=== PATIENT | female | born 2000 | race Caucasian/White ===

== ENCOUNTER 2018-09-18 18:06 | Emergency (ER) | payer OTHER ==
[~2018-09-18] VITALS: Ht 167.6 cm; Wt 84.4 kg
[2018-09-18] MEDS ORDERED: NAPROSYN500 MG PO (19:43)
[2018-09-18 20:06] VITALS: BP 115/68
== END 2018-09-18 20:06 | disposition home or self-care (01) ==
LOC: ER 18:06
DX: S93.491A Sprain of other ligament of right ankle, initial encounter (principal); F17.210 Nicotine dependence, cigarettes, uncomplicated; J45.909 Unspecified asthma, uncomplicated; W01.0XXA Fall on same level from slipping, tripping and stumbling without subsequent striking against object, initial encounter; Y92.89 Other specified places as the place of occurrence of the external cause; Y93.01 Activity, walking, marching and hiking; Y99.8 Other external cause status